=== PATIENT | male | born 1945 | race Caucasian/White ===

== ENCOUNTER 2020-12-17 19:46 | Emergency (ER) | payer OTHER ==
[~2020-12-17] VITALS: Ht 170.2 cm; Wt 77.1 kg
[2020-12-17 20:24] LABS: HEMOGLOBIN 13.7 gm/dl (14.0-17.5); RED BLOOD COUNT 4.56 M/UL (4.20-5.50); WHITE BLOOD COUNT 9.4 K/UL (4.5-11.0)
[2020-12-17 20:40] LABS: BUN/CREATININE RATIO 17 (0-10)
[2020-12-18] MEDS ORDERED: MAPAP500 MG PO (01:07)
[2020-12-18] MEDS ORDERED: AMLODIPINE BESYL5 MG PO (01:07)
[2020-12-18] MEDS ORDERED: ASPIRIN 325MG325 MG PO (01:07)
[2020-12-18] MEDS ORDERED: CELEXA10 MG PO (01:08)
[2020-12-18] MEDS ORDERED: BUSPIRONE HCL5 MG PO (01:08)
[2020-12-18] MEDS ORDERED: CENTRUM SILVER1 EAC2 PO (01:09)
[2020-12-18] MEDS ORDERED: CYCLOBENZAPRINE10 MG PO (01:09)
[2020-12-18] MEDS ORDERED: FLORASTOR250 MG PO (01:10)
[2020-12-18] MEDS ORDERED: FLOMAX0.4 MG PO (01:10)
[2020-12-18] MEDS ORDERED: NEURONTIN300 MG PO (01:10)
[2020-12-18] MEDS ORDERED: CONSTULOSE10 GM/15 M PO (01:11)
[2020-12-18] MEDS ORDERED: LAMICTAL25 MG PO (01:12)
[2020-12-18] MEDS ORDERED: GLUCOPHAGE1000 MG PO (01:12)
[2020-12-18] MEDS ORDERED: MELATONIN5 MG PO (01:12)
[2020-12-18] MEDS ORDERED: TOPROL XL50 MG PO (01:13)
[2020-12-18] MEDS ORDERED: MILK OF MA400 MG/5 M PO (01:15)
[2020-12-18] MEDS ORDERED: MIRALAX17 GM PO (01:16)
[2020-12-18] MEDS ORDERED: MYCOSTATIN CREA15 GM TOP (01:17)
[2020-12-18] MEDS ORDERED: PLAVIX75 MG PO (01:17)
[2020-12-18] MEDS ORDERED: PRAVACHOL20 MG PO (01:18)
[2020-12-18] MEDS ORDERED: ROPINIROLE HC0.25 MG PO (01:20)
[2020-12-18] MEDS ORDERED: [UNRECOGNIZED DRUG - OTHER] PO (01:20)
[2020-12-18] MEDS ORDERED: PROTONIX40 MG PO (01:20)
[2020-12-18] MEDS ORDERED: SYNTHROID150 MCG PO (01:21)
[2020-12-18] MEDS ORDERED: TRAMADOL HCL50 MG PO (01:22)
[2020-12-18] MEDS ORDERED: VASCEPA1 GM PO (01:23)
[2020-12-18] MEDS ORDERED: VITAMIN D325 MC6 PO (01:24)
[2020-12-18] MEDS ORDERED: WELLBUTRIN XL150 MG PO (01:24)
[2020-12-18] MEDS ORDERED: ZOFRAN4 MG PO (01:25)
== END 2020-12-18 19:30 | disposition home or self-care (01) ==
LOC: ER1 19:46 → ZEROF 21:43 → ER1 21:43
PROVIDERS: Emergency Medicine
DX: J18.9 Pneumonia, unspecified organism (principal); R07.89 Other chest pain; I10 Essential (primary) hypertension; E78.5 Hyperlipidemia, unspecified; E11.9 Type 2 diabetes mellitus without complications; N40.0 Benign prostatic hyperplasia without lower urinary tract symptoms; R13.12 Dysphagia, oropharyngeal phase; F32.9 Major depressive disorder, single episode, unspecified; F41.9 Anxiety disorder, unspecified; Z79.899 Other long term (current) drug therapy; G25.81 Restless legs syndrome; K21.9 Gastro-esophageal reflux disease without esophagitis; E03.9 Hypothyroidism, unspecified; Z86.73 Personal history of transient ischemic attack (TIA), and cerebral infarction without residual deficits; Z79.82 Long term (current) use of aspirin; Z79.02 Long term (current) use of antithrombotics/antiplatelets; Z20.822 Contact with and (suspected) exposure to COVID-19
CPT/HCPCS: 71045; 80053; 82550; 82553; 82962; 83874; 84484; 85025; 96374; 96375; 96376; 99285; J0692; J1650; J2405; Q9967; U0002